=== PATIENT | male | born 2005 ===

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

== ENCOUNTER 2024-01-22 13:17 | Emergency (ER) | payer OTHER ==
[2024-01-22] MEDS: Tetracaine HCl/PF 0.5% 4 ML Bottle EYEBOTH STA (13:58)
[2024-01-22] MEDS: Tetracaine HCl/PF 0.5% 4 ML Bottle EYELF ONE (13:58)
== END 2024-01-22 14:34 | disposition home or self-care (01) ==
LOC: MW.ED 13:17
DX: H57.12 Ocular pain, left eye (principal); Z79.899 Other long term (current) drug therapy; Z88.8 Allergy status to other drugs, medicaments and biological substances; Z75.8 Other problems related to medical facilities and other health care
CPT/HCPCS: 99283

== ENCOUNTER 2024-02-05 15:03 | Emergency (ER) | payer OTHER ==
[2024-02-05] MEDS: Ibuprofen 600 MG Tab PO ONE (15:54)
== END 2024-02-05 18:40 | disposition home or self-care (01) ==
LOC: MW.ED 15:03
DX: S49.92XA Unspecified injury of left shoulder and upper arm, initial encounter (principal); Z88.8 Allergy status to other drugs, medicaments and biological substances; Z88.4 Allergy status to anesthetic agent; V28.09XA Other motorcycle driver injured in noncollision transport accident in nontraffic accident, initial encounter
CPT/HCPCS: 71045; 71045-26; 72170; 72170-26; 73030-26-LT; 73030-LT; 99283